=== PATIENT | male | born 1980 | race Caucasian/White ===

== ENCOUNTER 2020-08-02 20:47 | Emergency (ER) | payer MEDICAID, SELFPAY ==
[2020-08-02 21:20] VITALS: BP 151/91; PULSE 81; RESP 19; TEMP 37.1; O2SAT 98; BMI 25.9
--- NOTE | 2020-08-02 22:06 | HMH.EDUTC ---
[facility] – [place] Disposition Clinical Impression: Bee sting reaction Qualifiers: Encounter type: initial encounter Injury intent: undetermined intent Qualified Code(s): T63.444A - Toxic effect of venom of bees, undetermined, initial encounter Disposition: Home, Self-Care Condition on Discharge: Good Instructions: How to Care for an Insect Bite or Sting, Insect Bites and Stings, DI for Insect Bites and Stings Additional Instructions: Watch for hives, worsening of swelling trouble breathing, trouble swallowing or trouble talking if any seen straight to the closest ER Follow up with your Family Doctor if symptoms return or worsen Return if needed Straight to ER if any life threatening symptoms Over the counter Benadryl; may help with any itching or reaction symptoms Prescriptions: predniSONE [Prednisone 5mg Tab Dose-Pack] 5 mg PO UD DOSE PK #21 pack Transmission Status: Received by [facility] Referrals: Abdirashid Kendrick MD [Primary Care Provider] - As needed Time of Disposition: 22:19 Medical Decision Making - Maverick Inquiry Pt receiving controlled substance: No Maverick was queried for this patient: No Vital Signs: 08/02/20 21:20 Temperature 98.7 F Temperature Source Oral Pulse Rate [Right Brachial] 81 Respiratory Rate 19 Blood Pressure [Right Arm] 151/91 H Blood Pressure Mean [Right Arm] 111 Blood Pressure Source [Right Arm] Automatic Cuff Blood Pressure Position [Right Arm] Sitting 02 Sat by Pulse Oximetry 98 Oxygen Delivery Method Room Air Orders (Tests/Meds): ED MEDICATIONS Discontinued Medications Generic Name Dose Route Start Last Admin Trade Name Subhashq PRN Reason Stop Dose Admin Diphenhydramine HCl 25 mg 08/02/20 22:06 08/02/20 22:19 Diphenhydramine 50mg/Ml Vial IM 08/02/20 22:07 25 mg ONCE ONE Administration Famotidine 20 mg 08/02/20 22:06 08/02/20 22:18 Famotidine 20mg Tablet PO 08/02/20 22:07 20 mg ONCE ONE Administration Loratadine 10 mg 08/02/20 22:07 08/02/20 22:19 Loratadine 10mg Tablet PO 08/02/20 22:08 10 mg ONCE ONE Administration Methylprednisolone Sodium Succinate 125 mg 08/02/20 22:06 08/02/20 22:19 Methylprednisolone Sod Succ 125mg Vial IM 08/02/20 22:07 125 mg ONCE ONE Administration Medical Decision Narrative: After injection patient began having sweating pale and feeling hot like he was going to pass out Staff by side and patient had approximately 10 sec syncopal episode then immediately opened eyes and color improved and started talking Patient state that he has not eaten today Given Mountain dew and crackers and color continued to improve and patient state that he is no longer feeling faint and feeling much better Discussed with patient about transfer to ED and patient declined Patient up walking around room no longer feeling dizzy or faint color much improved and being dc'd home with family [facility] [place] HPI - General Stated complaint: stung by bee on tonuge Time Seen by Provider: 08/02/20 22:06 Mode of Arrival: Ambulatory Source of Information: Patient Limitations: No Limitations Description of Symptoms (Recalled from Triage Doc. by RN): PATIENT STATES HE WAS STUNG BY A BEE ON HIS TONGUE APPROX 1600 TODAY. HE THINKS THE STINGER MAY STILL BE IN TONGUE HEENT Symptoms (Recalled from RN notes): Yes Resp Symptoms (Recalled from RN notes): No Skin Symptoms (Recalled from RN notes): No MS Symptoms (Recalled from RN notes): No Functional Status (Recalled from RN notes): WNL - History of Present Illness Provider Complaint: Patient state that around 4pm today he was taking a drink of pop out of a can that he had sit down and he felt something sting him on the tip of his tongue and spit it out and it was a honey bee States that family member removed stinger from his tongue and he took some benadryl around 430pm state that his tongue started swelling but went down after Benadryl and he laid down and when he got up felt like it was starting to swe
[2020-08-02 22:45] VITALS: BP 151/91; PULSE 81; RESP 19; TEMP 37.1; O2SAT 98
== END 2020-08-02 22:49 | disposition home or self-care (01) ==
PROVIDERS: Emergency Provider Nurse Practitioner; PCP Family Medicine
DX: T63.441A Toxic effect of venom of bees, accidental (unintentional), initial encounter (principal); R42 Dizziness and giddiness; F17.210 Nicotine dependence, cigarettes, uncomplicated
CPT/HCPCS: 96372; 99202; G0463

== ENCOUNTER 2020-12-19 13:40 | Emergency (ER) | payer MEDICAID, SELFPAY ==
[2020-12-19 13:40] VITALS: BP 133/82; PULSE 79; RESP 18; TEMP 36.6; O2SAT 98; BMI 27.1
--- NOTE | 2020-12-19 13:46 | XR_ITS ---
PROCEDURE: XR ANKLE LT MIN 3V CLINICAL INDICATION: JUMPED OFF OF TRAILER Pain COMPARISON: No exams were available for comparison FINDINGS: No fracture or dislocation. No lytic or blastic change. There is normal mineralization. There is mild soft tissue swelling in the lateral malleolar region. Other findings:None. IMPRESSION: Soft tissue swelling otherwise negative Dictated by: Silvio Phan MD 12/19/2020 15:25 Silvio Phan MD in [place] 12/19/2020 15:25
--- NOTE | 2020-12-19 14:09 | HMH.EDUTC ---
[facility] [place] Clinical Impression: Ankle sprain Qualifiers: Encounter type: initial encounter Involved ligament of ankle: other ligament Laterality: left Qualified Code(s): S93.492A - Sprain of other ligament of left ankle, initial encounter Disposition: Home, Self-Care Condition on Discharge: Good Instructions: How to Use Crutches, How To Perform RICE (Rest, Ice, Compress, Elevate), How to Use a Walking Boot Additional Instructions: *weight bearing as tolerated *RICE, Rest the extremity, Ice 15-20 minutes 3-4 times daily, Compress- wear the alexis wrap as discussed as much as possible to help reduce swelling and pain, Elevate the extremity when at rest *Walking boot is for support and help control swelling, Be sure that is not to tight but not to loose either Use Crutches to get around *Elevate when resting *Ibuprofen 800mg every 8 hours as needed for pain an inflammation. If need something more can take Tylenol in between doses of Ibuprofen to help Immediately follow up with your family doctor for new or worsening of symptoms, or no noticeable improvement over the next 3-5 days Call Back to the [facility] later this evening for the official reading of your Xray By the Radiologist Return if needed Straight to ER if any life threatening symptoms Follow up with your Family Doctor if needed Follow up with Podiatry if you continue to have pain and swelling Prescriptions: Ibuprofen [Ibuprofen 800mg Tablet] 800 mg PO TIDP PRN #20 tab PRN Reason: Moderate Pain Transmission Status: Received by [facility] Referrals: Abdirashid Kendrick MD [Primary Care Provider] - As needed Ximena Jones DPM [Staff Physician] - Paola Rojas APRN [Nurse Practitioner] - Time of Disposition: 14:25 Medical Decision Making - Maverick Inquiry Pt receiving controlled substance: No Maverick was queried for this patient: No Vital Signs: 12/19/20 13:40 12/19/20 14:30 Temperature 97.8 F 97.8 F Temperature Source Oral Pulse Rate 79 Pulse Rate [Right Brachial] 79 Respiratory Rate 18 18 Blood Pressure 133/82 Blood Pressure [Right Arm] 133/82 Blood Pressure Mean [Right Arm] 99 Blood Pressure Source [Right Arm] Automatic Cuff Blood Pressure Position [Right Arm] Sitting 02 Sat by Pulse Oximetry 98 Oxygen Delivery Method Room Air - Radiology Data #1 Image(s): Ankle Image Reviewed: Yes I reviewed the patient's radiology image Preliminary Findings: No Fracture Seen [facility] [place] - General Stated complaint: ao @ 1130 injury Lt ankle Time Seen by Provider: 12/19/20 14:09 Mode of Arrival: Ambulatory Source of Information: Patient, Significant Other Limitations: No Limitations Description of Symptoms (Recalled from Triage Doc. by RN): PATIENT STATES HE WAS JUMPING OFF OF A TRAILER TODAY AND TWISTED HIS LEFT ANKLE. HEENT Symptoms (Recalled from RN notes): No Resp Symptoms (Recalled from RN notes): No Skin Symptoms (Recalled from RN notes): No MS Symptoms (Recalled from RN notes): Yes Functional Status (Recalled from RN notes): WNL - History of Present Illness Provider Complaint: Patient state that he was jumping off trailer earlier when he rolled his left ankle States that he felt and heard loud pop States that ever since he has been having pain and swelling in his left ankle and hurts when he moves it and ankle swollen so he came in to get it checked - Related Data Previous Rx's Medication Instructions Recorded Ibuprofen [Ibuprofen 800mg 800 mg PO TIDP PRN #20 tab 12/19/20 Tablet] Allergies Allergy/AdvReac Type Severity Reaction Status Date / Time Penicillins Allergy Verified 08/02/20 21:42 - Worker's Comp Is this a Worker's Comp case?: No [facility] History - Hepatitis A Screen Drug use history?: No High risk sexual behaviors?: No History of sexually transmitted infection?: No Currently employed?: No Childcare worker?: No Do you have indoor plumbing?: Yes Do you have electricity?: Yes Attes
[2020-12-19 14:30] VITALS: BP 133/82; PULSE 79; RESP 18; TEMP 36.6; O2SAT 98
== END 2020-12-19 14:54 | disposition home or self-care (01) ==
PROVIDERS: Emergency Provider Nurse Practitioner; PCP Family Medicine
DX: S93.492A Sprain of other ligament of left ankle, initial encounter (principal); X50.1XXA Overexertion from prolonged static or awkward postures, initial encounter; Y92.89 Other specified places as the place of occurrence of the external cause; F17.210 Nicotine dependence, cigarettes, uncomplicated
CPT/HCPCS: 29515; 73610; 99202; G0463

== ENCOUNTER 2023-03-25 12:06 | Emergency (ER) | payer MEDICAID, SELFPAY ==
[2023-03-25 12:20] VITALS: BP 137/79; PULSE 85; RESP 21; TEMP 36.7; O2SAT 97; BMI 30.4
--- NOTE | 2023-03-25 12:51 | EXP.UTC ---
Discharge Plan Disposition Patient Disposition: Home, Self-Care Condition: Good Prescriptions Prescriptions: New azithromycin [Zithromax Z-Keenan] 250 mg tablet See Rx Instructions .ROUTE .COMPLEX 5 Days Qty: 6 0RF Rx Instructions: For 250 mg dose pack: take 500 mg today (day 1), then 250 mg for 4 days (days 2-5) prednisone [prednisone] 20 mg tablet 20 mg PO BID 5 Days Qty: 10 0RF guaifenesin [Mucinex] 600 mg tablet extended release 12hr 1,200 mg PO BID PRN (Reason: cough) Qty: 20 0RF promethazine-DM 6.25-15 mg/5 mL syrup 5 ml PO Q6H PRN (Reason: cough) Qty: 118 0RF No Action ibuprofen 800 MG tablet 800 mg PO TIDP PRN (Reason: Moderate Pain) Qty: 20 0RF Referrals Follow up/Referrals: Abdirashid Kendrick MD [Primary Care Provider] - See instructions Activity Restrictions/Add. Instructions Additional Instructions/Restrictions: Start antibiotic today. Be sure to complete entire prescription even if feeling better Monitor temp. Tylenol every 4 hours as needed and / or ibuprofen every 6 hours as needed ( As long as your primary care physician has told you that it ok to take both. For fever/aches/pains ER if no less than 101 despite Tylenol or Motrin Humidifier/vaporizer or hot steamy shower Inhaler every 4-6 hours as needed like we discussed. If unsure how to use it, ask pharmacist to demonstrate how. Should help open airways and improve cough, wheezing, and shortness of breath Mucinex during the day for your cough and cough suppressant only at night. Be sure to drink lots of water. *Promethazine DM cough syrup will cause drowsiness. Use only at night. No driving, operating machinery or caring for small children after taking it *Start steroid today. Helps with inflammation therefore, cough and wheezing. Follow directions on the package. Reviewed side effects. Patient reports taking them before. Follow up IMMEDIATELY for new or worsening of symptoms OR no noticeable improvement over the next 48-72 hours. 911 immediately for any life threatening symptoms such as chest pain or difficulty breathing Clinical Impressions Clinical Impression: Bronchitis Sinusitis Qualifiers: Sinusitis location: unspecified location Chronicity: unspecified Qualified Code(s): J32.9 - Chronic sinusitis, unspecified Instructions Patient Instructions: Sinusitis, Acute Bronchitis, DI for Sinusitis Discharge ED Provider: Ceci Sy [facility] [place] HPI General Stated complaint: chest congestion, cough, [place] Mode of Arrival: Ambulatory Source of Information: Patient Limitations: No Limitations Time Seen by Provider: 03/25/23 12:51 Description of Symptoms (Recalled from Triage Doc. by RN): PATIENT C/O COUGH, CONGESTION, RUNNY NOSE AND LOW-GRADE FEVER SINCE SATURDAY HEENT Symptoms (Recalled from RN notes): Yes Resp Symptoms (Recalled from RN notes): Yes Skin Symptoms (Recalled from RN notes): No MS Symptoms (Recalled from RN notes): No Functional Status (Recalled from RN notes): WNL History of Present Illness Provider Complaint: Patient states that he has been sick for about a week States that he has been having sinus pain and pressure, drainage in the back of his throat, cough, and low grade fever States that the feels like he may have a bad sinus infection and feels like it is moving into his chest Related Data Previous Rx's Medication Instructions Recorded ibuprofen 800 mg tablet 800 mg PO TIDP PRN Moderate Pain 12/19/20 #20 tabs azithromycin 250 mg tablet See Rx Instructions PO .COMPLEX 5 03/25/23 (Zithromax Z-Keenan) days #6 tabs guaifenesin 600 mg tablet, 1,200 mg PO BID PRN cough #20 tabs 03/25/23 extended release 12 hr (Mucinex) prednisone 20 mg tablet 20 mg PO BID 5 days #10 tabs 03/25/23 promethazine-DM 6.25 mg-15 mg/5 mL 5 ml PO Q6H PRN cough #118 mL 03/25/23 oral syrup Allergies Allergy/AdvReac Type Severity Reaction Status Date / Time Penicil
[2023-03-25 13:04] VITALS: BP 137/79; PULSE 85; RESP 21; TEMP 36.7; O2SAT 97
== END 2023-03-25 13:10 | disposition home or self-care (01) ==
PROVIDERS: Emergency Provider Nurse Practitioner; PCP Family Medicine
DX: J20.9 Acute bronchitis, unspecified (principal); J01.90 Acute sinusitis, unspecified; R50.9 Fever, unspecified; F17.210 Nicotine dependence, cigarettes, uncomplicated
CPT/HCPCS: 99212; 99214; G0463

== ENCOUNTER 2023-10-25 20:52 | Emergency (ER) | payer MEDICAID, SELFPAY ==
[2023-10-25 20:53] VITALS: BP 155/86; PULSE 84; RESP 18; TEMP 36.6; O2SAT 99; BMI 27.1
--- NOTE | 2023-10-25 21:14 | HMH.EDGENADL ---
Discharge Plan Disposition Patient Disposition: Home, Self-Care Condition: Good Prescriptions Prescriptions: New oxycodone 5 mg tablet 5 mg PO Q6HP PRN (Reason: pain) Qty: 12 0RF dicyclomine 20 mg tablet 20 mg PO QID PRN (Reason: abdominal pain) Qty: 20 0RF ondansetron 4 mg tablet,disintegrating 4 mg PO Q8H PRN (Reason: nausea and vomiting) 4 Days Qty: 12 0RF naproxen 500 mg tablet 500 mg PO BID Qty: 20 0RF pantoprazole 40 mg tablet,delayed release (DR/EC) 40 mg PO DAILY Qty: 30 0RF No Action ibuprofen 800 MG tablet 800 mg PO TIDP PRN (Reason: Moderate Pain) Qty: 20 0RF azithromycin [Zithromax Z-Keenan] 250 mg tablet See Rx Instructions .ROUTE .COMPLEX 5 Days Qty: 6 0RF Rx Instructions: For 250 mg dose pack: take 500 mg today (day 1), then 250 mg for 4 days (days 2-5) prednisone [prednisone] 20 mg tablet 20 mg PO BID 5 Days Qty: 10 0RF guaifenesin [Mucinex] 600 mg tablet extended release 12hr 1,200 mg PO BID PRN (Reason: cough) Qty: 20 0RF promethazine-DM 6.25-15 mg/5 mL syrup 5 ml PO Q6H PRN (Reason: cough) Qty: 118 0RF Referrals Follow up/Referrals: Abdirashid Kendrick MD [Primary Care Provider] - See instructions Activity Restrictions/Add. Instructions Additional Instructions/Restrictions: You were evaluated in the emergency department today. We have provided you with a sterile specimen cup to place a stool sample and if you are able to provide one at home to test for infectious causes of colitis. You may give this to your primary care provider. 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 Only take oxycodone as needed for severe intractable pain. Do not drive or operate heavy machinery while taking narcotic pain medication. Make sure that you eat a bland diet and stay orally hydrated. Follow-up closely with your primary care provider for reassessment. Return to the emergency department for new or worsening symptoms. Clinical Impressions Clinical Impression: Colitis Stand Alone Forms Stand Alone Forms: Work/School Release Instructions Patient Instructions: DI for Acute Abdominal Pain, DI for Colitis Discharge ED Provider: Henrietta Barroso General Adult HPI General Chief complaint: Abdominal Pain Stated complaint: abd pain Time Seen by Provider: 10/25/23 20:56 History of Present Illness HPI narrative: This patient is a 43-year-old male without significant past medical history presenting to the emergency department for evaluation with concern for epigastric abdominal pain. Patient reports that the pain started 2 days ago but significantly worsened today. He states he is very tender in his epigastric region. It is nonradiating. He does note that he felt like he strained muscles in his ribs catching himself while stepping off a tractor the other day, but he cannot think of any specific injury. He notes he is feeling better after that, so he does not really think that this is related. He denies any fevers, chills, chest pain, SOA, nausea, vomiting, rashes, or swelling. He does note that he had some cough and congestion. He also notes that he has had looser stools than usual for the last 4 weeks, which are foul-smelling. No history of prior intra-abdominal infections or recent antibiotic use. He has a history of appendectomy but no other prior abdominal surgeries. He still has his gallbladder. No history of pancreatitis or alcohol use. No history of peptic ulcer disease as far as he knows. Related Data Previous Rx's Medication Instructions Recorded ibuprofen 800 mg tablet 800 mg PO TIDP PRN Moderate Pain 12/19/20 #20 tabs azithromycin 250 mg tablet See Rx Instructions PO .COMPLEX 5 03/25/23 (Zithromax Z-Keenan) days #6 tabs guaifenesin 600 mg tablet, 1,200 mg (2 x 600 mg) PO BID PRN 03/25/23 extended release 12 hr (Mucinex) cough #20 tabs prednisone 20 mg tablet 20 mg PO BID 5 days #10 tabs 03/25/23 promethazine-DM 6.25 mg-15 mg/5 mL 5 ml PO Q6H PRN cough #118 mL 03/25/23 oral syrup dicyclomine 20 mg tablet 20 mg PO QID PRN abdominal pain 10/25/23 #20 tabs naproxen 500 mg tablet 500 mg PO BID #20 tabs 10/25/23 ondansetron 4 mg disintegrating 4 mg PO Q8H PRN nausea and 10/25/23 tablet vomiting 4 days #12 tabs oxycodone 5 mg tablet 5 mg PO Q6HP PRN pain #12 tabs 10/25/23 pantoprazole 40 mg tablet,delayed 40 mg PO DAILY #30 tabs 10/25/23 release Allergies Allergy/AdvReac Type Severity Reaction Status Date / Time Penicillins Allergy Verified 08/02/20 21:42 [facility] Disclaimer: The information contained in this section may have been updated after the patient was seen, as this information can be updated by other users. Surgical History History of appendectomy Social History Smoking Status: Current every day smoker tobacco type: cigarettes packs per day: 1 alcohol intake: never current occupational status: other Travel in the last 8 weeks: None ROS Obtained: Yes All systems reviewed & no additional complaints except as documented Physical Exam General General appearance: alert and in no apparent distress Head Head exam: atraumatic and normocephalic Eye Eye exam: Present normal appearance, PERRL and EOMI ENT ENT exam: Present normal exam, normal oropharynx, mucous membranes moist and normal external ear exam Neck Neck exam: Present normal inspection, full ROM and trachea midline; Absent tenderness Chest Chest inspection: Present normal inspection and symmetric chest wall rise; Absent tenderness Respiratory Respiratory exam: Present normal lung sounds bilaterally; Absent respiratory distress, wheezes, stridor or accessory muscle use Cardiovascular Cardiovascular exam: Present regular rate and normal rhythm Abdominal Exam Abdominal exam: Present soft and tenderness (Epigastric); Absent distention, guarding, rebound or rigidity Extremities Exam Extremities exam: Present normal inspection, full ROM and normal capillary refill; Absent tenderness or edema Back Exam Back exam: Present normal inspection and full ROM; Absent tenderness Neurological Exam Neurological exam: Present alert, oriented X3, CN II-XII intact and normal gait; Absent motor sensory deficit Psychiatric Psychiatric exam: Present normal affect and normal mood Skin Skin exam: Present warm and dry Medical Decision Making Medical Records Medical records reviewed: Yes I reviewed the patient's medical records. Maverick Inquiry Pt receiving controlled substance: Yes Maverick was queried for this patient: Yes Risks and benefits of using a controlled substance: were discussed with pt by me Vital Signs: 10/25/23 20:53 10/25/23 22:42 Temperature 97.9 F 98.6 F Temperature Source Oral Oral Pulse Rate 72 Pulse Rate [Left] 84 Respiratory Rate 18 16 Blood Pressure 149/93 H Blood Pressure [Right Arm] 155/86 H Blood Pressure Mean [Right Arm] 109 02 Sat by Pulse Oximetry 99 Oxygen Delivery Method Room Air Room Air Lab Data Lab results reviewed: Yes I reviewed the patient's lab results. Lab Results 10/25/23 21:08: WBC 12.8 H, RBC 5.53, Hgb 16.0, Hct 48.5, MCV 87.7, MCH 29.0, MCHC 33.1, RDW 12.8, Plt Count 305, MPV 7.8, Neut % (Auto) 60.3, Lymph % (Auto) 31.4, [place] % (Auto) 4.0, Eos % (Auto) 2.8, Baso % (Auto) 1.6, Neut # (Auto) 7.7, Lymph # (Auto) 4.0, [place] # (Auto) 0.5, Eos # (Auto) 0.4, Baso # (Auto) 0.2, Sodium 140, Potassium 3.6, Chloride 105, Carbon Dioxide 27, Anion Gap 11.6, BUN 13, Creatinine 1.30 H, Estimated Creat Clear 95, Estimated GFR 61, Est GFR ( Amer) 73, Glucose 125 H, Calcium 9.4, Total Bilirubin 0.4, AST 39, ALT 48, Alkaline Phosphatase 97, Troponin I < 0.01, Total Protein 7.5, Albumin 4.1, Globulin 3.4 H, Albumin/Globulin Ratio 1.2, Lipase 55 10/25/23 21:08 10/25/23 21:08 Orders (Tests/Meds): ED MEDICATIONS Generic Name Dose Route Start Last Admin Trade Name Freq PRN Reason Stop Dose Admin Sodium Chloride 8 ml 10/25/23 21:17 Sodium Chloride 0.9% 10ml Vial IV 11/24/23 21:16 NEEDED PRN dilute pepcid Sodium Chloride 10 ml 10/25/23 21:46 10/25/23 21:47 Sodium Chloride 0.9% 10ml Syr (Rad Only) IV 11/24/23 21:45 10 ml NEEDED PRN Administration Maintain IV Site Discontinued Medications Generic Name Dose Route Start Last Admin Trade Name Grace PRN Reason Stop Dose Admin Acetaminophen 1,000 mg 10/25/23 21:17 10/25/23 21:48 Acetaminophen 1,000mg/100ml Vial IV 10/25/23 21:18 1,000 mg ONCE ONE Administration Belladonna Alkaloids 60 ml 10/25/23 21:17 10/25/23 21:47 Belladonna Alkaloids 60 Ml Ml PO 10/25/23 21:18 60 ml ONCE ONE Administration Famotidine 20 mg 10/25/23 21:17 10/25/23 21:47 Famotidine 20mg/2ml Vial IV 10/25/23 21:18 20 mg ONCE ONE Administration Lactated Ringer's 1,000 mls @ 999 mls/hr 10/25/23 21:17 10/25/23 21:48 Lactated Ringer's 1000 Ml Bag IV 10/25/23 22:17 999 mls/hr .Q1H1M ONE Administration Iopamidol 75 ml 10/25/23 21:46 10/25/23 21:47 Iopamidol-370 (76%);100ml Bottle IV 10/25/23 21:47 75 ml ONCE ONE Administration Ketorolac Tromethamine 15 mg 10/25/23 21:17 10/25/23 21:47 Ketorolac 30mg/Ml Vial IV 10/25/23 21:18 15 mg ONCE ONE Administration Oxycodone HCl 5 mg 10/25/23 22:17 10/25/23 22:28 Oxycodone 5mg Immediate Release Tablet PO 10/25/23 22:18 5 mg ONCE ONE Administration ORDERS Category Date Time Status CT abdomen pelvis w con Stat Cat Scan 10/25/23 21:22 Completed CXR --portable [XR chest portable] Stat Exams 10/25/23 21:18 Completed CBC w/Auto Diff [Complete Blood Count Auto Diff] Stat Lab 10/25/23 21:08 Completed CMP [Comprehensive Metabolic Panel] Stat Lab 10/25/23 21:08 Completed Lipase Stat Lab 10/25/23 21:08 Completed Trop I [Troponin I] Stat Lab 10/25/23 21:08 Completed Troponin I Q3H Lab 10/26/23 00:30 Ordered Troponin I Q3H Lab 10/26/23 03:30 Ordered ECG Data Tracing #1: I reviewed this ECG and interpreted as documented below: Normal sinus rhythm with a ventricular rate of [address] changes concerning for ischemia. Normal axis and intervals. ECG initial impression date: 10/25/23 ECG initial impression time: 21:38 Medical Decision Narrative: In summary, this patient is a 43-year-old male presenting to the Emergency Department for evaluation of gastric abdominal pain. Differential diagnoses considered include but are not limited to pancreatitis, GERD, peptic ulcer disease, cholecystitis, colitis, duodenitis. Ruling out the most morbid conditions drove assessment. On exam, patient is lying in bed in no acute distress with normal vital signs on cardiac telemetry. He does have epigastric tenderness and pain is reproducible with palpation. Cardiopulmonary exam is reassuring, and he denies CP/SOA. Workup included CBC, CMP, lipase, troponin, chest x-ray, EKG, and CT abdomen and pelvis with IV contrast. He was given IV Pepcid, acetaminophen, Toradol, and a GI cocktail to assess for symptomatic improvement. I independently interpreted chest x-ray and CT scan prior to the radiologist read and noted no pneumothorax or pulmonary consolidation, but patient does have findings consistent with colitis. Please see their read for final interpretation. Labs were obtained that demonstrated mild leukocytosis without other acutely concerning abnormalities. Troponin negative. Lipase and liver enzymes normal. No significant SAMANTHA. On reassessment, patient had good improvement after administration of event as above. He states that he is feeling better. He is able to tolerate oral intake. I had a discussion with the patient and his regarding CT findings concerning for colitis, and they note that he has had the diarrhea for about 4 weeks. He was unable to provide a stool sample here, but he was provided with outpatient order and stool specimen for testing. Low risk for C. difficile based on history at this time. Given that his labs are reassuring and he is able to tolerate oral intake with manage symptoms, I feel that he is appropriate for discharge with outpatient follow-up and management of colitis. He was given instructions for supportive management and bowel rest. He was given prescriptions for oxycodone, naproxen, pantoprazole, Zofran, and Bentyl. He was given very strict return precautions as well as instructions for close [employer] follow-up. He was discharged after all questions were answered Critical Care Critical Care Time Critical Care Time: No
--- NOTE | 2023-10-25 21:18 | XR_ITS ---
PROCEDURE INFORMATION: Exam: XR Chest Exam date and time: 10/25/23 09:19 PM Age: 43 years old Clinical indication: Other: Epigastric pain TECHNIQUE: Imaging protocol: Radiologic exam of the chest. Views: 1 view. COMPARISON: No relevant prior studies available. FINDINGS: Lungs: Unremarkable. No consolidation. Pleural spaces: Unremarkable. No pleural effusion. No pneumothorax. Heart/Mediastinum: Unremarkable. No cardiomegaly. Bones/joints: Unremarkable. IMPRESSION: No acute findings.
--- NOTE | 2023-10-25 21:22 | CT_ITS ---
PROCEDURE INFORMATION: Exam: CT Abdomen And Pelvis With Contrast Exam date and time: 10/25/23 09:42 PM Age: 43 years old Clinical indication: Abdominal pain; Epigastric; Additional info: Epigastric pain TECHNIQUE: Imaging protocol: Computed tomography of the abdomen and pelvis with contrast. Radiation optimization: All CT scans at this facility use at least one of these dose optimization techniques: automated exposure control; mA and/or kV adjustment per patient size (includes targeted exams where dose is matched to clinical indication); or iterative reconstruction. Contrast material: ISOVUE; Contrast volume: 75 ml; Contrast route: IV; COMPARISON: CR XR CHEST PORTABLE 10/25/23 09:19 PM FINDINGS: Tubes, catheters and devices: None noted. Lungs: Lung bases appear clear. Heart: No significant coronary calcifications. No cardiomegaly. No significant pericardial effusion. Liver: Hypodense mass segment 7 right lobe of the liver, 2.7 x 2.3 cm incompletely evaluated. Consider hepatic MRI. Gallbladder and bile ducts: Normal. No calcified stones. No ductal dilation. Pancreas: Normal. No ductal dilation. Spleen: Normal. No splenomegaly. Adrenal glands: Normal. No mass. Kidneys and ureters: Normal. No hydronephrosis. Stomach and bowel: Pancolitis. No obstruction. No mucosal thickening. Appendix: Appendectomy. Intraperitoneal space: Unremarkable. No free air. No significant fluid collection. Retroperitoneal space: No significant retroperitoneal inflammatory changes are noted. Vasculature: Unremarkable. No abdominal aortic aneurysm. Lymph nodes: Calcified adenopathy right hilum. No enlarged lymph nodes. Urinary bladder: Unremarkable as visualized. Reproductive: Unremarkable as visualized. Bones/joints: Unremarkable. No acute fracture. Soft tissues: Unremarkable. IMPRESSION: 1. Pancolitis. 2. Hypodense mass segment 7 right lobe of the liver, 2.7 x 2.3 cm incompletely evaluated. Consider hepatic MRI.
[2023-10-25 21:25] LABS: Basophils # 0.2 K/mm3 (0-0.2); Basophils % 1.6 % (0.1-2.0); Eosinophils # 0.4 K/mm3 (0.0-0.4); Eosinophils % 2.8 % (0.1-12.0); Hematocrit 48.5 % (42.0-52.0); Lymphocytes % 31.4 % (10-50); Mean Corpuscular HGB Conc 33.1 g/dL (31.8-35.4); Mean Corpuscular Volume 87.7 fl (80-94); Mean Platelet Volume 7.8 fl (7.4-10.4); Monocytes # 0.5 K/mm3 (0.1-1.0); Neutrophils # 7.7 K/mm3 (1.8-7.8); Neutrophils % 60.3 % (37.0-80.0); Platelet Count 305 K/mm3 (142-424); Red Blood Count 5.53 M/mm3 (4.60-6.20); Red Cell Distribution Width 12.8 % (11.5-17.5); White Blood Count 12.8 K/mm3 (4.8-10.8)
[2023-10-25 21:26] LABS: Chloride 105 mmol/L (98-107); Sodium 140 mmol/L (136-145)
[2023-10-25 21:27] LABS: Potassium 3.6 mmoL/L (3.5-5.1)
[2023-10-25 21:29] LABS: Alanine Aminotransferase 48 U/L (12-78); Albumin Level 4.1 g/dl (3.5-5.0); Albumin/Globulin Ratio 1.2 (1.1-1.8); Alkaline Phosphatase 97 U/L (38-126); Anion Gap 11.6 mEq/L (5-15); Aspartate Amino Transferase 39 U/L (17-59); Bilirubin,Total 0.4 mg/dl (0.2-1.3); Blood Urea Nitrogen 13 mg/dl (9-20); Calcium 9.4 mg/dl (8.4-10.2); Carbon Dioxide 27 mmol/L (22.0-30.0); Creatinine Clearance Estimated 95 mL/min (50-200); Estimated Glomerular Filt Rate 61 ml/min (>60); GFR (African American) 73 ML/MIN (>60); Globulin 3.4 g/dL (1.3-3.2); Glucose 125 mg/dl (74-100); Lipase 55 U/L (23-300); Total Protein,Serum 7.5 g/dl (6.3-8.2)
--- NOTE | 2023-10-25 21:36 | ECG_ITS ---
APPROVED REPORT Exam: Resting ECG HR:68 bpm ECG Measurements Heart Rate 68 AXES ME 149 P 49 QRSd 93 QRS 71 QT 379 T 52 QTc 397 Conclusion SINUS RHYTHM Electronically signed by : DANIELLE AMEZQUITA, 10/25/2023 22:52:31
[2023-10-25 21:42] LABS: Troponin I < 0.01 ng/ml (0.00-0.034)
[2023-10-25] MEDS: BELLADONNA ALKALOIDS 60 ML ML PO (21:47)
[2023-10-25] MEDS: FAMOTIDINE 20MG/2ML VIAL 20 MG IV (21:47)
[2023-10-25] MEDS: KETOROLAC 30MG/ML VIAL 15 MG IV (21:47)
[2023-10-25] MEDS: IOPAMIDOL-370 (76%);100ML BOTTLE 75 ML IV (21:47)
[2023-10-25] MEDS: SODIUM CHLORIDE 0.9% 10ML SYR (RAD ONLY) 10 ML IV (21:47)
[2023-10-25] MEDS: ACETAMINOPHEN 1,000MG/100ML VIAL 1000 MG IV (21:48)
[2023-10-25] MEDS: LACTATED RINGERS 1000ML 1,000 ML 999 ML IV (21:48)
[2023-10-25] MEDS: OXYCODONE 5MG IMMEDIATE RELEASE TABLET 5 MG PO (22:28)
[2023-10-25 22:42] VITALS: BP 149/93; PULSE 72; RESP 16; TEMP 37; O2SAT 98
== END 2023-10-25 22:54 | disposition home or self-care (01) ==
PROVIDERS: Emergency Provider Emergency Medicine; PCP Family Medicine
DX: R10.13 Epigastric pain (principal); K52.9 Noninfective gastroenteritis and colitis, unspecified; F17.210 Nicotine dependence, cigarettes, uncomplicated
CPT/HCPCS: 71045; 74177; 80053; 83690; 84484; 85025; 93005; 96361; 96374; 96375; 99285; J0131; J7120; Q9967

== ENCOUNTER 2023-11-08 15:35 | Emergency (ER) | payer MEDICAID, SELFPAY ==
[2023-11-08 16:08] VITALS: BP 132/96; PULSE 100; RESP 18; TEMP 37; O2SAT 98; BMI 26.7
--- NOTE | 2023-11-08 16:25 | ED_ITS ---
Discharge Plan Disposition Patient Disposition: Home, Self-Care Condition: Good Prescriptions Prescriptions: New azithromycin [Zithromax Z-Keenan] 250 mg tablet 500 mg PO DAILY 5 Days Qty: 6 0RF Rx Instructions: Take 2 tabs on day 1, then 1 tab days 2-5 prednisone 20 mg tablet 20 mg PO BID 5 Days Qty: 10 0RF pseudoephedrine HCl [12 Hour Decongestant] 120 mg Tablet Extended Release 120 mg PO Q12H Qty: 20 0RF No Action ibuprofen 800 MG tablet 800 mg PO TIDP PRN (Reason: Moderate Pain) Qty: 20 0RF azithromycin [Zithromax Z-Keenan] 250 mg tablet See Rx Instructions .ROUTE .COMPLEX 5 Days Qty: 6 0RF Rx Instructions: For 250 mg dose pack: take 500 mg today (day 1), then 250 mg for 4 days (days 2-5) prednisone [prednisone] 20 mg tablet 20 mg PO BID 5 Days Qty: 10 0RF guaifenesin [Mucinex] 600 mg tablet extended release 12hr 1,200 mg PO BID PRN (Reason: cough) Qty: 20 0RF promethazine-DM 6.25-15 mg/5 mL syrup 5 ml PO Q6H PRN (Reason: cough) Qty: 118 0RF oxycodone 5 mg tablet 5 mg PO Q6HP PRN (Reason: pain) Qty: 12 0RF dicyclomine 20 mg tablet 20 mg PO QID PRN (Reason: abdominal pain) Qty: 20 0RF ondansetron 4 mg tablet,disintegrating 4 mg PO Q8H PRN (Reason: nausea and vomiting) 4 Days Qty: 12 0RF naproxen 500 mg tablet 500 mg PO BID Qty: 20 0RF pantoprazole 40 mg tablet,delayed release (DR/EC) 40 mg PO DAILY Qty: 30 0RF Referrals Follow up/Referrals: Abdirashid Kendrick MD [Primary Care Provider] - See instructions Clinical Impressions Clinical Impression: Sinusitis Instructions Patient Instructions: DI for Sinusitis Discharge ED Provider: Ritu Resendiz [facility] [place] HPI General Stated complaint: sinus pressure Mode of Arrival: Ambulatory Source of Information: Patient Limitations: No Limitations Time Seen by Provider: 11/08/23 16:25 Description of Symptoms (Recalled from Triage Doc. by RN): pt reports that he believes he has a sinus infection. pt c/o facial edema, a knot to the L side of his face, L facial pressure and a productive cough. ongoing since 11/06/23 HEENT Symptoms (Recalled from RN notes): Yes Resp Symptoms (Recalled from RN notes): Yes Skin Symptoms (Recalled from RN notes): No MS Symptoms (Recalled from RN notes): No Functional Status (Recalled from RN notes): wnl History of Present Illness Provider Complaint: Sinus pain and pressure, pain in left jaw, chest congestion X 3 days. No fever. Onset (ago): day(s) (3) Location: face Relieving factors: none Exacerbating factors: none Associated symptoms: denies other symptoms Treatments prior to arrival: none Related Data Previous Rx's Medication Instructions Recorded ibuprofen 800 mg tablet 800 mg PO TIDP PRN Moderate Pain 12/19/20 #20 tabs azithromycin 250 mg tablet See Rx Instructions PO .COMPLEX 5 03/25/23 (Zithromax Z-Keenan) days #6 tabs guaifenesin 600 mg tablet, 1,200 mg (2 x 600 mg) PO BID PRN 03/25/23 extended release 12 hr (Mucinex) cough #20 tabs prednisone 20 mg tablet 20 mg PO BID 5 days #10 tabs 03/25/23 promethazine-DM 6.25 mg-15 mg/5 mL 5 ml PO Q6H PRN cough #118 mL 03/25/23 oral syrup dicyclomine 20 mg tablet 20 mg PO QID PRN abdominal pain 10/25/23 #20 tabs naproxen 500 mg tablet 500 mg PO BID #20 tabs 10/25/23 ondansetron 4 mg disintegrating 4 mg PO Q8H PRN nausea and 10/25/23 tablet vomiting 4 days #12 tabs oxycodone 5 mg tablet 5 mg PO Q6HP PRN pain #12 tabs 10/25/23 pantoprazole 40 mg tablet,delayed 40 mg PO DAILY #30 tabs 10/25/23 release azithromycin 250 mg tablet 500 mg (2 x 250 mg) PO DAILY 5 11/08/23 (Zithromax Z-Keenan) days #6 tabs prednisone 20 mg tablet 20 mg PO BID 5 days #10 tabs 11/08/23 pseudoephedrine HCl 120 mg 120 mg PO Q12H #20 tabs 11/08/23 tablet,extended release (12 Hour Decongestant ER) Allergies Allergy/AdvReac Type Severity Reaction Status Date / Time Penicillins Allergy Verified 11/08/23 16:15 Worker's Comp Is this a Worker's Comp case?: No [facility] Disclaimer: The information contained in this section may have been updated after the patient was seen, as this information can be updated by other users. Surgical History History of appendectomy Social History Smoking Status: Current every day smoker tobacco type: cigarettes packs per day: 1 alcohol intake: never current occupational status: other Travel in the last 8 weeks: None ROS Obtained: Yes All systems reviewed & no additional complaints except as documented ENT Ears, Nose, Mouth, and Throat: Reports sinus pain and Reports sinus pressure Respiratory Respiratory: Reports chest congestion and Reports cough Physical Exam General General appearance: alert and in no apparent distress Head Head exam: atraumatic, normocephalic and normal inspection Eye Eye exam: Present normal appearance, PERRL and EOMI ENT ENT exam: Present normal exam, normal oropharynx, mucous membranes moist, TM's normal bilaterally and normal external ear exam Expanded ENT Exam Nose exam: Present sinus tenderness Neck Neck exam: Present normal inspection, full ROM and trachea midline; Absent meningismus or lymphadenopathy Chest Chest inspection: Present normal inspection and symmetric chest wall rise; Absent tenderness Respiratory Respiratory exam: Present normal lung sounds bilaterally; Absent respiratory distress Cardiovascular Cardiovascular exam: Present regular rate and normal rhythm; Absent JVD Extremities Exam Extremities exam: Present normal inspection, full ROM and normal capillary refill; Absent calf tenderness Neurological Exam Neurological exam: Present alert and oriented X3 Psychiatric Psychiatric exam: Present normal affect and normal mood Skin Skin exam: Present warm, dry, intact and normal color Lymphatic Lymphatic Findings: no adenopathy Medical Decision Making Maverick Inquiry Pt receiving controlled substance: No Vital Signs: 11/08/23 16:08 Temperature 98.6 F Temperature Source Oral Pulse Rate [Left] 100 H Respiratory Rate 18 Blood Pressure [Right Arm] 132/96 H Blood Pressure Mean [Right Arm] 108 Blood Pressure Source [Right Arm] Automatic Cuff Blood Pressure Position [Right Arm] Sitting 02 Sat by Pulse Oximetry 98 Oxygen Delivery Method Room Air
[2023-11-08 16:39] VITALS: BP 137/93; PULSE 92; RESP 16; TEMP 37; O2SAT 99
== END 2023-11-08 16:42 | disposition home or self-care (01) ==
PROVIDERS: Emergency Provider Physician Assistant; PCP Family Medicine
DX: J01.90 Acute sinusitis, unspecified (principal); R68.84 Jaw pain; R09.81 Nasal congestion
CPT/HCPCS: 99212; 99214; G0463